=== PATIENT | female | born 1965 | race Caucasian/White ===

== ENCOUNTER 2017-02-01 08:53 | Inpatient (IN) ==
--- NOTE | 2017-02-01 09:10 | Emergency Department Note ---
Disposition Clinical Impression: Dehydration, Hypokalemia Intractable vomiting Qualifiers: Vomiting type: unspecified Nausea presence: with nausea Qualified Code(s): R11.2 - Nausea with vomiting, unspecified Abdominal pain Qualifiers: Abdominal location: epigastric Qualified Code(s): R10.13 - Epigastric pain Disposition: Admitted As Inpatient Condition: Fair Abdominal Pain HPI - General Chief Complaint: ED Abdominal Pain Stated Complaint: n/v/back pain and abdominal Time Seen by Provider: 02/01/17 09:04 Source: patient, EMS Mode of arrival: EMS Limitations: no limitations Nursing Notes Reviewed: Yes Vital Signs Reviewed: Yes - History of Present Illness HPI Narrative: The patient presents with 5 days of pain in the epigastric region which is occasionally sharp and radiating towards her right mid lateral abdomen and flank region. She describes the pain as about a 6 on a scale of 1-10. She has had nausea and vomiting persistently over the 5 days without blood or mucus. She has passed some bilious emesis. She relates that nausea and vomiting is worse after oral intake and she has had minimal to eat or drink. She has report some diarrhea the first 2 days syndrome in which she thought there might a been a little bit of blood. She has not been having bowel movement in the last 3 days. Genitourinary frequency, dysuria or blood. She denies any vaginal discharge or bleeding. She questions if she had a fever and has had some chills. She does report some weakness without any dizziness or presyncopal complaints. She has not been having chest pain or shortness of breath but has had the pain in the epigastrium. She denies cough. She denies any ill exposures, change in medications or recent antibiotics. She states she has had similar pancreatitis in the past but denies any recent use of alcohol or nonsteroidal medication. She was seen at [facility] 2 days ago and had laboratory and the CT performed. She states the CT was reported to be unremarkable but the laboratory did show some pancreatitis. She has been trying Phenergan at home without relief of her nausea. With the persistence of pain and vomiting she has come in by EMS for evaluation. Pt Subjective Complaint: abdominal pain, flank pain (5) Consistency: constant, Worsening Location: epigastric, R flank Pain Severity: moderate Quality: aching, sharp Radiation: none Migration to: no migration Improves with: nothing Worsens with: eating Context: history of similar episodes Associated symptoms: Reports: nausea, vomiting, diarrhea, fever, chills. Denies : constipation, dysuria, hematemesis, hematochezia, melena, hematuria, anorexia , syncope Treatments prior to arrival: other (Phenergan) - Related Data Home Medications Medication Instructions Recorded Confirmed Gabapentin [Neurontin] 600 mg PO QID 03/31/15 02/01/17 Venlafaxine [Effexor] 75 mg PO TID 03/31/15 02/01/17 Loratadine [Allergy Relief] 10 mg PO DAILY 02/01/17 02/01/17 Allergies Allergy/AdvReac Type Severity Reaction Status Date / Time acetaminophen [From Tylenol] Allergy Difficulty Verified 02/01/17 08:55 Swallowing ibuprofen Allergy Gastrointestinal Verified 02/01/17 08:55 Upset Penicillins Allergy Rash Verified 02/01/17 08:55 All systems ED: reviewed and negative except as stated. Abdominal Pain PMH - Past Medical History Medical history: Reports: other (pancreatitis, chronic low back pain) Female Surgical History: Reports: appendectomy, , cholecystectomy, hysterectomy Psychiatric history: Reports: PTSD - Social History Smoking status: Current every day smoker Alcohol use: Reports: none Drug use: Reports: marijuana Physical Exam - General Limitations: no limitations General appearance: alert, in distress - Head Head exam: atraumatic, normocephalic, normal inspection - Eye Eye exam: Present: normal appearance, PERRL, EOMI. Absent: scleral icterus, conjunctival injection - ENT ENT exam: normal exam, normal oropharynx, mucous membranes moist - Neck Neck exam: Present: normal inspection, full ROM, trachea midline - Chest Chest inspection: Present: normal inspection, symmetric chest wall rise - Respiratory Respiratory exam: Present: normal lung sounds bilaterally. Absent: respiratory distress, wheezes, prolonged expiratory phase - Cardiovascular Cardiovascular exam: Present: regular rate, normal rhythm, normal heart sounds - Abdominal Exam Abdominal exam: Present: soft, normal bowel sounds. Absent: distention, guarding, rebound, rigidity, Kirk's sign, tenderness at McBurney's Point, mass , hernia Abdominal tenderness: Present: epigastrium, moderate - Extremities Exam Extremities exam: Present: normal inspection, full ROM, normal capillary refill. Absent: tenderness, pedal edema - Expanded Lower Extremity Exam Neurovascular/Tendon exam: Present: normal capillary refill. Absent: motor deficit, sensory deficit, tendon deficit Gait: not tested/not observed - Back Exam Back exam: Present: normal inspection, full ROM. Absent: tenderness, CVA tenderness (R), CVA tenderness (L), vertebral tenderness - Neurological Exam Neurological exam: Present: alert, oriented X3 - Psychiatric Psychiatric exam: Present: agitated, anxious - Skin Skin exam: Present: warm, dry, intact, normal color. Absent: diaphoresis, pallor Course Course Narrative: 0940: Records from [facility] have been received and reviewed. She did not have elevation of her pancreatic enzymes and her CT abdomen was remarkable for age indeterminate T12 compression fracture and no evidence for pancreatitis or pancreatic pseudocyst. She did receive IV fluids, Benadryl, fentanyl and anti-emetics. Her white count was mildly elevated. The patient's renal function was normal. 1020: All lab and reviewed testing from [facility] has been discussed with the patient. She is showing some prerenal azotemia, hypokalemia and leukocytosis with her persistent abdominal pain and vomiting. Her abdominal exam is nonsurgical but she does continue with nausea in the department. I will discuss care with Dr. Mansfield for continued hydration, potassium replacement and antiemetics. I do not believe the CT abdomen or imaging need repeated at this time. Vital Signs Temperature 98.9 F 02/01/17 08:58 Pulse Rate 115 02/01/17 08:58 Respiratory Rate 18 02/01/17 08:58 Blood Pressure 122/98 02/01/17 08:58 O2 Sat by Pulse Oximetry 96 02/01/17 08:58 Temperature 98.9 F 02/01/17 08:58 Pulse Rate 88 02/01/17 10:53 Respiratory Rate 18 02/01/17 10:53 Blood Pressure 133/96 02/01/17 10:53 O2 Sat by Pulse Oximetry 94 02/01/17 10:53 Oxygen Delivery Oxygen Delivery Room Air Abdominal Pain - Differential Diagnosis Differential Diagnosis: Likely: abdominal pain non-specific, pancreatitis - Lab Data Lab results reviewed: Yes I reviewed the patient's lab results. Result diagrams: 02/01/17 09:20 02/01/17 09:20 Lab Results 02/01/17 02/01/17 02/01/17 Range/Units 09:20 09:20 10:53 WBC 22.1 H (4.3-11.1) K/mcL RBC 5.45 H (3.82-4.97) M/mcL Hgb 16.8 H (11.5-15.4) g/dL Hct 45.0 H (35.3-44.9) % MCV 82.6 L (83.0-100.0) fL MCH 30.8 (28.0-33.3) pg MCHC 37.3 H (31.6-35.5) g/dL RDW 11.8 (11.5-14.5) % Plt Count 481 H (140-400) K/mcL MPV 10.2 (9.4-12.4) fL Immature Gran % 0.5 (0-4) % Seg Neutrophils % 73.9 % Lymphocytes % 14.0 % Monocytes % 11.5 % Eosinophils % 0.0 % Basophils % 0.1 % Neutrophils # 16.3 H (1.6-8.9) K/mcL Lymphocytes # 3.1 (0.6-4.6) K/mcL Monocytes # 2.5 H (0.0-1.3) K/mcL Eosinophils # 0.0 (0.0-0.6) K/mcL Basophils # 0.0 (0.0-0.2) K/mcL Sodium 134 L (136-145) mEq/L Potassium 2.4 L* (3.5-4.5) mEq/L Chloride 72 L (98-109) mEq/L Carbon Dioxide 38 H (19-29) mEq/L BUN 39 H (7-20) mg/dL Creatinine 1.27 H (0.57-1.11) mg/dL Est GFR ( Amer) 54 L (> 60) Est GFR (Non-Af Amer) 45 L (> 60) BUN/Creatinine Ratio 31 H (6-26) Glucose 125 H (70-99) mg/dL Calculated Osmolality 289 (280-300) Calcium 10.7 (8.6-10.8) mg/dL Total Bilirubin 1.5 H (0.2-1.2) mg/dL Direct Bilirubin 0.5 (0.0-0.5) mg/dL Indirect Bilirubin 1.0 (0.0-1.2) mg/dL AST 21 (5-34) Units/L ALT 20 (0-55) Units/L Alkaline Phosphatase 82 (38-126) Units/L Serum Total Protein 9.0 H (6.0-8.3) g/dL Albumin 5.0 (3.5-5.0) g/dL Globulin 4.0 H (2.4-3.5) g/dL Albumin/Globulin Ratio 1.3 (1.1-2.2) Amylase 71 (25-125) Units/L Lipase 56 (8-78) Units/L Urine Color Yellow (Yellow) Urine Clarity Clear (Clear) Urine pH 8.5 H (5.0-8.0) pH Units Ur Specific Carter 1.020 (1.010-1.025) Urine Protein >=300 H (Neg-Trace) mg/dL Urine Glucose (UA) Normal (Normal) mg/dL Urine Ketones 80 H (Negative) mg/dL Urine Blood Trace-intact H (Negative) Urine Nitrite Negative (Negative) Urine Bilirubin Small H (Negative) Urine Urobilinogen Normal (Normal) mg/dL Ur Leukocyte Esterase Negative (Negative)
[2017-02-01] MEDS ORDERED: Ondansetron 4 MG/2 ML VIAL IVP ONE (09:11)
[2017-02-01] MEDS ORDERED: *HR* HYDROmorphone (PF) 1 MG/ML SYRINGE IVP ONE (09:11)
[2017-02-01] MEDS ORDERED: 0.9 % Sodium Chloride 1,000 ML IVC ONE (09:11)
[2017-02-01] MEDS ORDERED: Pantoprazole 40 MG VIAL IVP ONE (09:11)
[2017-02-01 09:45] LABS: Basophils % 0.1 %; Hemoglobin 16.8 g/dL (11.5-15.4); Immature Granulocytes % 0.5 % (0-4); Lymphocytes # 3.1 K/mcL (0.6-4.6); Mean Corpuscular Hemoglobin 30.8 pg (28.0-33.3); Mean Corpuscular Volume 82.6 fL (83.0-100.0); Mean Platelet Volume 10.2 fL (9.4-12.4); Monocytes # 2.5 K/mcL (0.0-1.3); Monocytes % 11.5 %; Neutrophils # 16.3 K/mcL (1.6-8.9); Platelet Count 481 K/mcL (140-400); Red Blood Count 5.45 M/mcL (3.82-4.97); Red Cell Distribution Width 11.8 % (11.5-14.5); Segmented Neutrophils % 73.9 %
[2017-02-01 09:59] LABS: Albumin/Globulin Ratio 1.3 (1.1-2.2); Bilirubin,Direct 0.5 mg/dL (0.0-0.5); Bilirubin,Total 1.5 mg/dL (0.2-1.2); Calcium 10.7 mg/dL (8.6-10.8)
[2017-02-01 10:16] LABS: Mean Corpuscular HGB Conc 37.3 g/dL (31.6-35.5); Potassium 2.4 mEq/L (3.5-4.5)
[2017-02-01] MEDS ORDERED: *HR* Promethazine 25 MG/ML VIAL IVP ONE (10:22)
[2017-02-01] MEDS ORDERED: 0.9 % Sodium Chloride 1,000 ML IVC SCH ×2 (10:30→11:11)
[2017-02-01 10:57] LABS: Bilirubin,Urine Small (Negative); Blood,Urine Trace-intact (Negative); Clarity,Urine Clear (Clear); Color,Urine Yellow (Yellow); Glucose,Urine (UA) Normal (Normal); Ketones,Urine 80 mg/dL (Negative); Leukocyte Esterase,Urine Negative (Negative); Nitrite,Urine Negative (Negative); PH,Urine 8.5 pH Units (5.0-8.0); Protein,Urine >=300 mg/dL (Neg-Trace); Urobilinogen,Urine Normal (Normal)
[2017-02-01] MEDS ORDERED: *HR* Promethazine 25 MG/ML VIAL IVP PRN (11:11)
[2017-02-01] MEDS ORDERED: Ondansetron 4 MG/2 ML VIAL IVP PRN (11:11)
[2017-02-01] MEDS ORDERED: *HR* HYDROmorphone (PF) 1 MG/ML SYRINGE IVP PRN (11:11)
[2017-02-01] MEDS ORDERED: Naloxone 0.4 MG/ML INJ IVP PRN (11:11)
[2017-02-01 11:14] LABS: Bacteria,Urine Few per hpf (None-Few); Hyaline Casts,Urine Few per lpf (None-Few); RBC,Urine 0-3 per hpf (0-3); Squamous Epithelial Cell,Urine Few per lpf (None-Few)
--- NOTE | 2017-02-01 12:32 | Internal Med History&Physical ---
Date of Encounter: 02/01/17 Time of Encounter: 11:40 Assessment and Plan (1) Abdominal pain Current visit: Yes Status: Acute Suspect gastritis with possible additional etiologies superimposed. She will receive IV fluids and antiemetics as needed. Qualifiers: Abdominal location: epigastric Qualified Code(s): R10.13 - Epigastric pain (2) Acute renal failure Current visit: Yes Status: Acute Suspect secondary to fluid loss from vomiting. IV fluids have been ordered and repeat labs to be done in a.m. Qualifiers: Acute renal failure type: unspecified Qualified Code(s): N17.9 - Acute kidney failure, unspecified (3) Hypokalemia Current visit: Yes Status: Acute Supplemental potassium has been ordered. Labs will be rechecked in a.m. Internal Medicine - H&P: HPI Chief complaint: Abdominal pain and vomiting Admitted From: Home Plans for Post Hospital Care: Home History of present illness: Ms. Cortes is a 51 year old female who came to emergency room stating she had abdominal pain and vomiting onset approximately 5 days previously. She describes the pain as originating in the epigastric area and initially radiating to her interscapular area. It gradually became more localized in her right lower quadrant. She went to [facility] emergency room the evening of January 30. Evaluation included abdomen/pelvis CT scan which showed no acute pathology. There was age-indeterminate T12 compression fracture. Lab work showed WBC 17.3 K with 87% neutrophils. BUN and creatinine were 20 and 0.835 respectively. She was released from the emergency room but did not improve over the next 2 days. She had multiple episodes of vomiting over the last 3 days. There was a BM on the day of onset with visible red blood followed by black stool within 24 hours but she has had no further BMs. She was evaluated in ER today and found to have dehydration and hypokalemia. She was admitted to [facility] floor for ongoing care needs. Her GI history is pertinent for remote cholecystectomy and appendectomy. She had EGD procedures 2007 and 2009 with no significant pathology seen. She had an unremarkable colonoscopy 2007. She was told she had pancreatitis on one occasion in the past. Past Med Surg Social Fam HX - Past Medical History Medical history: other Psychiatric history: PTSD - Past Surgical History Surgical History: appendectomy, , cholecystectomy, hysterectomy - Social History Smoking Status: Current every day smoker Smokeless Tobacco Status: No Alcohol use: none Drug use: marijuana - Family History Daughter Adopted: No Family Member Ethnicity: Non- Living Status: Still Living Hx Family Cardiac Disorders: No Hx Family Respiratory Disorders: Yes (Asthma) Hx Family Cancer: Yes (Pancreatic) Hx Family GI Disorders: Yes (IBS, Reflux) Hx Family Endocrine Disorder: Yes (Diabetes) Hx Family Neuromuscular Disorders: No Hx Family Neurologic Disorders: No Hx Family HEENT Disorders: No Hx Family Autoimmune Disorders: No Internal Medicine - H&P: Meds Gabapentin [Neurontin] 600 mg PO QID 03/31/15 [History] Venlafaxine [Effexor] 75 mg PO TID 03/31/15 [History] Loratadine [Allergy Relief] 10 mg PO DAILY 02/01/17 [History] Allergies acetaminophen [From Tylenol] Allergy (Verified 02/01/17 08:55) Difficulty Swallowing ibuprofen Allergy (Verified 02/01/17 08:55) Gastrointestinal Upset Penicillins Allergy (Verified 02/01/17 08:55) Rash All Systems PM: A 10-system review of systems was performed and is negative for pertinent findings except as documented above in the HPI. Review of systems: Gen.: Her weight has decreased from 67.857 kg on 04/02/2015 to 63.957 kg on admission today Cardiovascular: She denies hypertension AK heart failure angina DVT or pulmonary embolus Respiratory: She smoked since age 16 up to 1 & 1/2 packs per day. She does not have documented lung disease and does not wear home oxygen. She reports having CT scan of chest done at [facility] approximately 3 months ago and was told she had a lung nodule. She was instructed to follow regularly with with oil well service operator to monitor this. GI: As per history of present illness : She denies hematuria dysuria or kidney stones. Neurologic: She denies large distribution strokes or seizures Endocrine: She denies diabetes thyroid disease or hyperlipidemia Hematology/oncology: She denies blood disorders cancers or anemia Psychiatric: She denies anxiety depression or other mental health issues Musk skeletal: She claims she has RA and DJD but denies gout or osteoporosis. She states she has "pinched nerves" in her neck resulting in her hands feeling numb occasionally. She has pain in her low back that seems to occasionally radiate down her leg. - Constitutional Vitals: Temp Pulse Resp BP Pulse Ox 98.7 F 92 16 155/94 98 02/01/17 11:35 02/01/17 11:35 02/01/17 11:35 02/01/17 11:35 02/01/17 11:35 Exam: Gen.: She is a well-developed well-nourished female lying in bed who appears in mild to moderate discomfort HEENT: Head is atraumatic and normocephalic. Eyes: EOMI. There is no scleral icterus. Mouth: Mucosa is moist. Neck: Supple and nontender. There is no thyromegaly or adenopathy noted. Heart: Regular without murmurs gallops or ectopics Lungs: No wheezes or crackles are heard. Abdomen: Bowel sounds are absent. There is tenderness to palpation diffusely without rigidity. No masses or guarding are noted. Extremities: There is no cyanosis edema or clubbing noted. Dorsalis pedis and posttibial pulses are 1-2 over 2 bilaterally. Neurologic: Mental status: She is talkative and a good historian. Cranial nerves: Smile is symmetric. Forehead wrinkles bilaterally. Tongue protrudes midline. EOMI. Motor: There is no pronator drift. Cerebellar: Fair to nose is intact bilaterally. Skin: Warm and dry. Internal Med - H&P Results - Labs CBC & Chem 7: 02/01/17 09:20 02/01/17 09:20
[2017-02-01] MEDS: 0.45 % Sodium Chloride w/KCl 20 MEQ/1,000 ML MLS IVC SCH ×2 (12:46→20:37)
[2017-02-01] MEDS: Gabapentin 300 MG CAPSULE PO SCH ×3 (12:47→20:05)
[2017-02-01] MEDS: *HR* HYDROmorphone (PF) 1 MG/ML SYRINGE IVP PRN ×3 (13:49→22:40)
[2017-02-01] MEDS: Ondansetron 4 MG/2 ML VIAL IVP PRN ×3 (13:49→22:40)
[2017-02-01] MEDS: *HR* Promethazine 25 MG/ML VIAL IVP PRN ×2 (16:05→20:06)
[2017-02-02] MEDS: *HR* HYDROmorphone (PF) 1 MG/ML SYRINGE IVP PRN ×9 (02:44→23:11)
[2017-02-02] MEDS: Ondansetron 4 MG/2 ML VIAL IVP PRN ×3 (02:44→10:51)
[2017-02-02] MEDS: *HR* Promethazine 25 MG/ML VIAL IVP PRN ×8 (04:37→23:11)
[2017-02-02 05:52] LABS: Hematocrit 41.9 % (35.3-44.9); Hemoglobin 14.9 g/dL (11.5-15.4); Mean Corpuscular HGB Conc 35.6 g/dL (31.6-35.5); Mean Corpuscular Hemoglobin 30.3 pg (28.0-33.3); Mean Corpuscular Volume 85.2 fL (83.0-100.0); Mean Platelet Volume 10.4 fL (9.4-12.4); Platelet Count 378 K/mcL (140-400); Red Blood Count 4.92 M/mcL (3.82-4.97); Red Cell Distribution Width 11.6 % (11.5-14.5)
[2017-02-02 06:10] LABS: BUN/Creatinine Ratio 32 (6-26); Blood Urea Nitrogen 25 mg/dL (7-20); Calcium 9.3 mg/dL (8.6-10.8); Carbon Dioxide 24 mEq/L (19-29); Chloride 93 mEq/L (98-109); Glucose 94 mg/dL (70-99); Osmolality,Calculated 280 (280-300); Potassium 3.1 mEq/L (3.5-4.5); Sodium 133 mEq/L (136-145); eGFR For African Americans > 60 (> 60); eGFR For Non-African Americans > 60 (> 60)
[2017-02-02] MEDS: Gabapentin 300 MG CAPSULE PO SCH ×4 (08:52→19:18)
[2017-02-02] MEDS ORDERED: Loratadine 10 MG TABLET PO SCH (09:00)
[2017-02-02] MEDS ORDERED: Pantoprazole 40 MG VIAL IVP SCH (09:00)
--- NOTE | 2017-02-02 10:25 | Internal Med Progress Note ---
Date of Encounter: 02/02/17 Time of Encounter: 10:15 - Assessment and plan (1) Abdominal pain Current Visit: Yes Status: Acute Assessment and plan: February 02. Continue IV fluids. Will increase anti-emetics and analgesics. Advance diet as tolerated. Qualifiers: Abdominal location: epigastric Qualified Code(s): R10.13 - Epigastric pain (2) Acute renal failure Current Visit: Yes Status: Acute Assessment and plan: February 02. Resolved. Continue IV fluids and recheck labs in a.m. Qualifiers: Acute renal failure type: unspecified Qualified Code(s): N17.9 - Acute kidney failure, unspecified (3) Hypokalemia Current Visit: Yes Status: Acute Assessment and plan: February 02. Improved. Continue IV fluids with supplemental potassium and recheck labs in a.m. - Subjective Interval history: February 02. She feels slightly improved. She still had vomiting and complains of ongoing nausea and abdominal pain. - Constitutional Vitals: Temp Pulse Resp BP Pulse Ox 99.0 F 93 17 137/96 95 02/02/17 06:19 02/02/17 06:19 02/02/17 06:19 02/02/17 06:19 02/02/17 06:19 Exam: Abdomen shows bowel sounds diminished. There is mild tenderness to palpation diffusely. I reviewed her medications and lab results. Internal Medicine: Result - Labs CBC & Chem 7: 02/02/17 04:53 02/02/17 04:53 Labs: Short CBC 02/02/17 Range/Units 04:53 WBC 14.4 H (4.3-11.1) K/mcL Hgb 14.9 D (11.5-15.4) g/dL Hct 41.9 (35.3-44.9) % Plt Count 378 (140-400) K/mcL BMP 02/02/17 04:53 Sodium 133 L Potassium 3.1 L Chloride 93 L D Carbon Dioxide 24 BUN 25 H D Creatinine 0.77 Glucose 94 Calcium 9.3 Consult Discharge Plan - Plan Referrals: Man Novak, [facility] [Primary Care Provider] - 1 week
[2017-02-02] MEDS ORDERED: 0.45 % Sodium Chloride w/KCl 20 MEQ/1,000 ML MLS IVC SCH (17:13)
[2017-02-03] MEDS: Ondansetron 4 MG/2 ML VIAL IVP PRN (00:26)
[2017-02-03] MEDS: *HR* Promethazine 25 MG/ML VIAL IVP PRN ×3 (01:06→08:04)
[2017-02-03] MEDS: *HR* HYDROmorphone (PF) 1 MG/ML SYRINGE IVP PRN ×3 (01:06→08:05)
[2017-02-03] MEDS ORDERED: *HR* Enoxaparin 40 MG/0.4 ML SYRINGE SQ SCH (06:00)
[2017-02-03 06:39] LABS: Basophils % 0.3 %; Eosinophils # 0.2 K/mcL (0.0-0.6); Eosinophils % 1.8 %; Hematocrit 42.1 % (35.3-44.9); Hemoglobin 14.7 g/dL (11.5-15.4); Immature Granulocytes % 0.8 % (0-4); Lymphocytes # 5.6 K/mcL (0.6-4.6); Mean Corpuscular HGB Conc 34.9 g/dL (31.6-35.5); Mean Corpuscular Hemoglobin 30.4 pg (28.0-33.3); Mean Corpuscular Volume 87.2 fL (83.0-100.0); Mean Platelet Volume 10.5 fL (9.4-12.4); Monocytes % 7.6 %; Platelet Count 331 K/mcL (140-400); Red Blood Count 4.83 M/mcL (3.82-4.97); Red Cell Distribution Width 11.8 % (11.5-14.5); Segmented Neutrophils % 46.5 %
[2017-02-03 06:44] VITALS: BP 107/77
[2017-02-03 06:58] LABS: Alanine Aminotransferase 20 Units/L (0-55); Albumin 3.6 g/dL (3.5-5.0); Albumin/Globulin Ratio 1.2 (1.1-2.2); Alkaline Phosphatase 67 Units/L (38-126); Aspartate Amino Transferase 19 Units/L (5-34); BUN/Creatinine Ratio 29 (6-26); Bilirubin,Total 0.7 mg/dL (0.2-1.2); Blood Urea Nitrogen 22 mg/dL (7-20); Calcium 9.2 mg/dL (8.6-10.8); Carbon Dioxide 23 mEq/L (19-29); Chloride 101 mEq/L (98-109); Globulin 3.1 g/dL (2.4-3.5); Glucose 105 mg/dL (70-99); Osmolality,Calculated 290 (280-300); Potassium 3.3 mEq/L (3.5-4.5); Sodium 138 mEq/L (136-145); Total Protein 6.7 g/dL (6.0-8.3); eGFR For African Americans > 60 (> 60); eGFR For Non-African Americans > 60 (> 60)
[2017-02-03 07:09] LABS: Neutrophils # 6.1 K/mcL (1.6-8.9)
[2017-02-03] MEDS: Gabapentin 300 MG CAPSULE PO SCH (08:41)
--- NOTE | 2017-02-03 10:02 | Discharge Summary ---
Date of Encounter: 02/03/17 Time of Encounter: 09:50 - Discharge Diagnosis (1) Abdominal pain Priority: Primary Status: Acute Qualifiers: Abdominal location: epigastric Qualified Code(s): R10.13 - Epigastric pain (2) Acute renal failure Priority: Secondary Status: Resolved Qualifiers: Acute renal failure type: unspecified Qualified Code(s): N17.9 - Acute kidney failure, unspecified (3) Hypokalemia Priority: Secondary Status: Acute - Discharge Medications Prescriptions: Promethazine [Phenergan] 25 mg PO Q6HR #8 tablet Home Medications: Gabapentin [Neurontin] 600 mg PO QID 03/31/15 [History] Venlafaxine [Effexor] 75 mg PO TID 03/31/15 [History] Loratadine [Allergy Relief] 10 mg PO DAILY PRN #0 02/03/17 [Rx] Promethazine [Phenergan] 25 mg PO Q6HR #8 tablet 02/03/17 [Rx] Allergies/Adverse Reactions: Allergies acetaminophen [From Tylenol] Allergy (Verified 02/01/17 08:55) Difficulty Swallowing ibuprofen Allergy (Verified 02/01/17 08:55) Gastrointestinal Upset Penicillins Allergy (Verified 02/01/17 08:55) Rash Date of admission: 02/02/17 17:12 Primary care physician: Man Novak CNP - Patient Status Disposition: Home, Self-Care Condition: Fair Functional capacity at discharge: independent ambulation Overall status at discharge: patient is progressing back to baseline - Discharge Instructions Follow Up With: Man Novak CNP [Primary Care Provider] - 1 week - Diet and Activity Activity: resume usual activities as tolerated Diet: advance to your usual diet Hospital course: Ms. Cortes is a 51 year old female who came to emergency room stating she had abdominal pain and vomiting onset approximately 5 days previously. She describes the pain as originating in the epigastric area and initially radiating to her interscapular area. It gradually became more localized in her right lower quadrant. She went to [facility] emergency room the evening of January 30. Evaluation included abdomen/pelvis CT scan which showed no acute pathology. There was age-indeterminate T12 compression fracture. Lab work showed WBC 17.3 K with 87% neutrophils. BUN and creatinine were 20 and 0.835 respectively. She was released from the emergency room but did not improve over the next 2 days. She had multiple episodes of vomiting over the last 3 days. There was a BM on the day of onset with visible red blood followed by black stool within 24 hours but she has had no further BMs. She was evaluated in ER today and found to have dehydration and hypokalemia. She was admitted to [facility] for ongoing care needs. Initial orders were written by the emergency room physician. I saw her on February 01 and performed the history and physical. She was given IV fluids and anti-emetics as needed. She had gradual improvement of the abdominal pain and vomiting. She was able to tolerate adequate amount of fluid and fluid intake on the day of discharge. Azotemia resolved with BUN and creatinine being 22 and 0.75 respectively on the day of discharge with estimated GFR greater than 60. Supplemental potassium was given and potassium level ngoc to 3.3 by the day of discharge. On February 03 I felt she was stable for discharge home. She will follow with her PCP Man Novak CNP within 1 week. - Time Spent with Patient Total time spent providing and/or coordinating discharge services: - Constitutional Vitals: Temp Pulse Resp BP Pulse Ox 98.2 F 96 17 107/77 94 02/03/17 06:42 02/03/17 06:42 02/03/17 06:42 02/03/17 06:42 02/03/17 06:42
== END 2017-02-03 11:10 | disposition home or self-care (01) | DRG 241 ==
LOC: EMEROOPIK 08:53 → INPPIK 08:53
PROVIDERS: ADMIT Internal Medicine; ATTEND Internal Medicine